=== PATIENT | female | born 1995 | race Two or more races ===

== ENCOUNTER 2022-07-20 00:33 | Emergency (ER) | payer OTHER ==
[~2022-07-20] VITALS: Ht 157.5 cm; Wt 98.6 kg
[2022-07-20 02:35] LABS: Urine Bacteria NONE SEEN /hpf (None Seen); Urine Blood Negative /uL (Negative); Urine Mucus FEW (None Seen); Urine WBC 1 /hpf (0 - 5)
[2022-07-20 04:16] VITALS: BP 115/71
== END 2022-07-20 04:33 | disposition home or self-care (01) ==
LOC: ER 00:38
DX: S56.117A Strain of flexor muscle, fascia and tendon of right little finger at forearm level, initial encounter (principal); W22.8XXA Striking against or struck by other objects, initial encounter; Y93.89 Activity, other specified; Y92.89 Other specified places as the place of occurrence of the external cause; Y99.8 Other external cause status
CPT/HCPCS: 73130; 81001

== ENCOUNTER → 2023-07-03 | Outpatient (CLI) | payer MEDICAID ==
[2023-07-03 11:07] LABS: Basophils # (auto) 0.1 10 ^3/uL (0-0.2); Basophils % (auto) 0.4 % (0.0-2.0); Eosinophils # (auto) 0.2 10 ^3/uL (0-0.8); Eosinophils % (auto) 1.8 % (0.0-7.0); Hematocrit 40.3 % (36.0-46.0); Hemoglobin 13.4 g/dL (12.2-16.2); Lymphocytes # (auto) 1.8 10 ^3/uL (0.4-5.4); Lymphocytes % (auto) 14.7 % (10.0-50.0); Mean Corpuscular Hemoglobin 27.4 pg (28.0-32.0); Mean Corpuscular Hgb Conc. 33.2 g/dL (32.0-36.0); Mean Corpuscular Volume 82.6 fL (80.0-100.0); Monocytes # (auto) 0.5 10 ^3/uL (0-1.3); Monocytes % (auto) 4.3 % (0.0-12.0); Neutrophils # (auto) 9.8 10 ^3/uL (1.6-8.6); Neutrophils % (auto) 78.8 % (37.0-80.0); Red Blood Cells 4.89 10^6/uL (4.0-5.20); White Blood Cell 12.4 10^3/uL (4.4-10.8)
[2023-07-03 11:44] LABS: Amphetamine Screen, Urine Neg (NEGATIVE); Barbiturate Scree,Urine Neg (NEGATIVE); Benzodiazephine Screen, Urine Neg (NEGATIVE); Cocaine Screen, Urine Neg (NEGATIVE); Opiate Scree,Urine Neg (NEGATIVE)
[2023-07-03 11:45] LABS: Cannabinoid Screen, Urine Neg (NEGATIVE); Phencyclidine Screen, Urine Neg (NEGATIVE)
[2023-07-04 07:07] LABS: RPR Non Reactive (Non Reactive)
[2023-07-05 03:06] LABS: Varicella Zoster IgG Antibody <135 index (Immune >165)
[2023-07-06 03:36] LABS: QuantiFERON-TB Gold Plus Negative (Negative)
== END | disposition home or self-care (01) ==
LOC: LAB 10:37
PROVIDERS: ATTEND Obstetrics & Gynecology
DX: Z36.0 Encounter for antenatal screening for chromosomal anomalies (principal); Z31.430 Encounter of female for testing for genetic disease carrier status for procreative management
CPT/HCPCS: 36415; 80307; 83036; 84702; 85025; 86592; 86787; 86803; 86850; 86870; 86900; 86901; 87086

== ENCOUNTER → 2023-11-03 | Outpatient (CLI) | payer MEDICAID ==
[2023-11-03 10:09] LABS: Basophils # (auto) 0.1 10 ^3/uL (0-0.2); Basophils % (auto) 0.3 % (0.0-2.0); Eosinophils # (auto) 0.2 10 ^3/uL (0-0.8); Eosinophils % (auto) 1.1 % (0.0-7.0); Hematocrit 37.9 % (36.0-46.0); Hemoglobin 12.6 g/dL (12.2-16.2); Mean Corpuscular Hemoglobin 27.5 pg (28.0-32.0); Mean Corpuscular Hgb Conc. 33.1 g/dL (32.0-36.0); Mean Corpuscular Volume 82.8 fL (80.0-100.0); Monocytes # (auto) 0.7 10 ^3/uL (0-1.3); Monocytes % (auto) 4.7 % (0.0-12.0); Neutrophils # (auto) 11.6 10 ^3/uL (1.6-8.6); Neutrophils % (auto) 79.9 % (37.0-80.0); Red Blood Cells 4.58 10^6/uL (4.0-5.20); Red Cell Distribution Width 12.9 % (11.8-14.3); White Blood Cell 14.6 10^3/uL (4.4-10.8)
== END | disposition home or self-care (01) ==
LOC: LAB 09:50
PROVIDERS: ATTEND Obstetrics & Gynecology
DX: Z34.80 Encounter for supervision of other normal pregnancy, unspecified trimester (principal); Z3A.00 Weeks of gestation of pregnancy not specified
CPT/HCPCS: 36415; 83036; 84443; 85025; 86787

== ENCOUNTER 2024-01-22 07:02 | Inpatient (IN) | payer MEDICAID ==
[2024-01-21 09:59] LABS: Urine Bacteria None Seen /hpf (None Seen)
[2024-01-21 10:12] LABS: Basophils # (auto) 0 10 ^3/uL (0-0.2); Eosinophils # (auto) 0.3 10 ^3/uL (0-0.8); Lymphocytes # (auto) 1.7 10 ^3/uL (0.4-5.4); Monocytes # (auto) 0.7 10 ^3/uL (0-1.3); Neutrophils # (auto) 10.6 10 ^3/uL (1.6-8.6)
[2024-01-21 10:13] LABS: Basophils % (auto) 0.1 % (0.0-2.0); Eosinophils % (auto) 2.5 % (0.0-7.0); Hematocrit 37.8 % (36.0-46.0); Hemoglobin 12.5 g/dL (12.2-16.2); Lymphocytes % (auto) 12.8 % (10.0-50.0); Mean Corpuscular Hemoglobin 26.4 pg (28.0-32.0); Mean Corpuscular Volume 80.1 fL (80.0-100.0); Monocytes % (auto) 5.1 % (0.0-12.0); Neutrophils % (auto) 79.5 % (37.0-80.0); Red Blood Cells 4.72 10^6/uL (4.0-5.20); Red Cell Distribution Width 14.5 % (11.8-14.3); White Blood Cell 13.3 10^3/uL (4.4-10.8)
[2024-01-21 10:27] LABS: Alanine Aminotransferase 16 U/L (7-40); Albumin 3.6 g/dL (3.2-4.8); Alkaline Phosphatase 149 U/L (46-116); Anion Gap 5 (5-15); Aspartate Aminotransferase 25 U/L (13-40); BUN/Creatinine Ratio 8.5 (10.0-20.0); Blood Urea Nitrogen 6 mg/dL (9-23); Calcium 8.8 mg/dL (8.5-10.1); Carbon Dioxide 24 mmol/L (20-30); Chloride 108 mmol/L (98-107); Glucose 118 mg/dL (74-106); Potassium 3.7 mmol/L (3.5-5.1); Sodium 137 mmol/L (136-145)
[2024-01-21 10:28] LABS: Bilirubin, Total 0.4 mg/dL (0.2-1.0); Total Protein 6.4 g/dL (5.7-8.2)
[2024-01-21 10:35] LABS: Amphetamine Screen, Urine Neg (NEGATIVE); Barbiturate Scree,Urine Neg (NEGATIVE); Benzodiazephine Screen, Urine Neg (NEGATIVE); Cocaine Screen, Urine Neg (NEGATIVE)
[2024-01-21 10:36] LABS: Cannabinoid Screen, Urine Neg (NEGATIVE); Opiate Scree,Urine Neg (NEGATIVE); Phencyclidine Screen, Urine Neg (NEGATIVE)
[2024-01-21 10:43] LABS: INR 0.91 (0.9-1.15); Partial Thromboplastin Time 30.8 SEC (24.5-34.5); Prothrombin Time 9.6 sec (9.3-11.8)
[2024-01-21 10:55] LABS: Urine Blood Negative /uL (Negative); Urine Clarity Clear (Clear); Urine Color Yellow (Yellow); Urine Mucus FEW (None Seen); Urine Protein, UAD TRACE (Negative); Urine Specific Gravity 1.019 (1.001-1.035); Urine Urobilinogen Normal (Negative); Urine WBC 3 /hpf (0 - 5)
[2024-01-22] VITALS (16 sets, daily range): BP systolic 90–111; BP diastolic 50–63; PULSE 60–102; RESP 16–20; TEMP 97.5–100.1; O2SAT 96–100
[~2024-01-22] VITALS: Ht 157.5 cm; Wt 110.7 kg
[2024-01-22 07:06] LABS: RPR Non Reactive (Non Reactive)
[2024-01-22 08:14] LABS: Urine Bacteria FEW /hpf (None Seen); Urine Blood Negative /uL (Negative); Urine Clarity Clear (Clear); Urine Color Light-Yellow (Yellow); Urine Protein, UAD Negative (Negative); Urine Specific Gravity 1.017 (1.001-1.035); Urine Urobilinogen Normal (Negative); Urine WBC 2 /hpf (0 - 5); Urine pH 6.5 (5.0-9.0)
[2024-01-22 08:23] LABS: Amphetamine Screen, Urine Neg (NEGATIVE); Barbiturate Scree,Urine Neg (NEGATIVE); Benzodiazephine Screen, Urine Neg (NEGATIVE); Cannabinoid Screen, Urine Neg (NEGATIVE); Cocaine Screen, Urine Neg (NEGATIVE); Opiate Scree,Urine Neg (NEGATIVE); Phencyclidine Screen, Urine Neg (NEGATIVE)
[2024-01-22] MEDS ORDERED: ePHEDrine SULFATE 50 MG/ML AMP ONE (08:45)
[2024-01-22] MEDS ORDERED: MORPHINE SULF PF 5 MG/10 ML VIAL ONE (08:45)
[2024-01-22] MEDS ORDERED: ONDANSETRON HCL 4 MG/2 ML VIAL ONE (08:45)
[2024-01-22] MEDS ORDERED: GLYCOPYRROLATE 0.2 MG/ML 1ML VIAL ONE (08:45)
[2024-01-22] MEDS ORDERED: fentaNYL CITRATE 100 MCG/2 ML VL ONE (08:45)
[2024-01-22] MEDS ORDERED: oxyTOCIN 10 UNIT/ML 10ML VIAL ONE (08:45)
[2024-01-22] MEDS ORDERED: KETOROLAC TROMETH 30 MG/ML 1ML VIAL ONE (08:45)
[2024-01-22] MEDS ORDERED: BUPIVACAINE 0.5% P/F INJ 10 ML VIAL ONE (08:51)
[2024-01-22] MEDS ORDERED: MEPERIDINE HCL (25 MG/ML) 1ML VIAL ONE (09:44)
[2024-01-22] MEDS ORDERED: diphenhdrAMINE HCL 50 MG/1 ML VL IV PRN (10:45)
[2024-01-22] MEDS ORDERED: NALOXONE HCL 0.4 MG/ML VIAL IV PRN (10:45)
[2024-01-22] MEDS ORDERED: ONDANSETRON HCL 4 MG/2 ML VIAL IV PRN ×2 (10:45→12:00)
[2024-01-22] MEDS ORDERED: DexAMETHasone SOD PHOS 10MG/1ML VIAL INJ IV PRN (10:45)
[2024-01-22] MEDS ORDERED: IBUP-1455 PO (11:12)
[2024-01-22] MEDS ORDERED: CEPH500C PO (11:12)
[2024-01-22] MEDS ORDERED: HYDR-4902 PO (11:12)
[2024-01-22] MEDS: LACTATED RINGER'S 1,000 ML IV SCH (11:29)
[2024-01-22] MEDS: ceFAZolin 2 GM/D5W50ml 50 ML IV ONE (11:29)
[2024-01-22] MEDS: LACTATED RINGER'S 1,000 ML IV ONE (11:29)
[2024-01-22] MEDS ORDERED: MORPHINE SULFATE 4 MG/ML SYR/VIAL IV PRN (12:00)
[2024-01-22] MEDS: ACETAMINOPHEN IV 1000 MG/100ML (10MG/ML) IV PRN (13:49)
[2024-01-22] MEDS: ceFAZolin 1GM/50ML 50 ML IV SCH (16:41)
[2024-01-23] MEDS: KETOROLAC TROMETH 30 MG/ML 1ML VIAL IV PRN (01:20)
[2024-01-23 02:50] VITALS: BP 95/55; PULSE 101; RESP 17; TEMP 99.2; O2SAT 100
[2024-01-23 07:00] VITALS: BP 102/59; PULSE 94; RESP 14; TEMP 98.3; O2SAT 96
[2024-01-23 09:35] LABS: Basophils # (auto) 0 10 ^3/uL (0-0.2); Basophils % (auto) 0.2 % (0.0-2.0)
[2024-01-23 09:36] LABS: Eosinophils # (auto) 0.3 10 ^3/uL (0-0.8); Eosinophils % (auto) 1.9 % (0.0-7.0); Hemoglobin 10.2 g/dL (12.2-16.2); Lymphocytes # (auto) 1.5 10 ^3/uL (0.4-5.4); Lymphocytes % (auto) 9.5 % (10.0-50.0); Mean Corpuscular Hemoglobin 26.2 pg (28.0-32.0); Mean Corpuscular Hgb Conc. 32.7 g/dL (32.0-36.0); Monocytes # (auto) 0.7 10 ^3/uL (0-1.3); Monocytes % (auto) 4.5 % (0.0-12.0); Neutrophils # (auto) 13.2 10 ^3/uL (1.6-8.6); Neutrophils % (auto) 83.9 % (37.0-80.0); Red Blood Cells 3.88 10^6/uL (4.0-5.20); Red Cell Distribution Width 14.9 % (11.8-14.3); White Blood Cell 15.7 10^3/uL (4.4-10.8)
[2024-01-23] MEDS: ePHEDrine SULFATE 50 MG/ML AMP IV PRN (10:45)
[2024-01-23 11:07] VITALS: BP 111/56; PULSE 97; RESP 17; TEMP 97.8; O2SAT 96
[2024-01-23] MEDS: SIMETHICONE 80 MG CHEWABLE TABLET PO SCH (12:00)
[2024-01-23] MEDS: IBUPROFEN 800 MG TAB PO PRN (14:25)
[2024-01-23 15:00] VITALS: BP 115/73; PULSE 105; RESP 16; TEMP 98.3; O2SAT 98
[2024-01-23] MEDS: HYDROcodone-ACET 5/325MG TAB PO PRN (17:17)
[2024-01-23 19:00] VITALS: BP 113/62; PULSE 78; TEMP 98.2; O2SAT 100
[2024-01-23 23:00] VITALS: BP 110/65; PULSE 100; RESP 16; TEMP 98.1; O2SAT 98
[2024-01-23] MEDS: DOCUSATE SOD 100 MG CAP PO SCH (23:05)
[2024-01-24 02:50] VITALS: BP 114/70; PULSE 82; RESP 16; TEMP 98.5; O2SAT 98
[2024-01-24] MEDS: HYDROcodone-ACET 5/325MG TAB PO PRN (05:59)
[2024-01-24 07:25] VITALS: TEMP 97.5
[2024-01-24] MEDS: DOCUSATE CALCIUM 240 MG CAP PO SCH (09:58)
[2024-01-24 11:00] VITALS: BP 120/65; PULSE 109; RESP 16; TEMP 97.7; O2SAT 100
[2024-01-24 12:30] VITALS: BP 120/65; PULSE 109; RESP 16; TEMP 97.7; O2SAT 100
== END 2024-01-24 12:30 | disposition home or self-care (01) | DRG 540 ==
LOC: LDRP 07:02
PROVIDERS: ADMIT Obstetrics & Gynecology; ATTEND Obstetrics & Gynecology
PROC: 10D00Z1 Extraction of Products of Conception, Low, Open Approach (ICD-10-PCS; principal; 2024-01-22 09:36)
DX: O34.211 Maternal care for low transverse scar from previous cesarean delivery (principal); O99.214 Obesity complicating childbirth; E66.01 Morbid (severe) obesity due to excess calories; O26.893 Other specified pregnancy related conditions, third trimester; Z37.0 Single live birth; Z3A.39 39 weeks gestation of pregnancy; Z67.41 Type O blood, Rh negative
CPT/HCPCS: 36415; 59025; 80053; 80307; 81001; 85025; 85610; 85730; 86592; 86850; 86900; 86901; 94760; 94762; 96360; 96361; 96366; G0378; J0131; J1885; J2405; J2590; J3490

== ENCOUNTER 2025-09-08 07:38 | Inpatient (IN) | payer MEDICAID ==
[~2025-09-08] VITALS: Ht 154.9 cm; Wt 117.5 kg
[~2025-09-08 07:38] MED LIST: CEPH500C PO; HYDR-4902 PO; IBUP-1455 PO
[2025-09-08 08:50] LABS: Hemoglobin 12.2 g/dL (12.2-16.2); Nucleated Red Blood Cells % 0.0 %
[2025-09-08 08:52] LABS: Hematocrit 36.8 % (36.0-46.0); Mean Corpuscular Hemoglobin 25.7 pg (28.0-32.0); Mean Corpuscular Volume 77.5 fL (80.0-100.0)
[2025-09-08 09:01] LABS: Urine Budding Yeast OCCASIONAL /hpf (None Seen); Urine Protein, UAD Negative (Negative)
[2025-09-08 09:08] LABS: Alanine Aminotransferase 11 U/L (7-40); Albumin 3.7 g/dL (3.2-4.8); Anion Gap 7 (5-15); BUN/Creatinine Ratio 9.1 (10.0-20.0); Calcium 8.9 mg/dL (8.7-10.4); Carbon Dioxide 25 mmol/L (20-31); Chloride 105 mmol/L (98-107); Glucose 87 mg/dL (74-106); Potassium 3.9 mmol/L (3.5-5.1); Sodium 137 mmol/L (136-145); Total Protein 6.5 g/dL (5.7-8.2)
[2025-09-08 09:09] LABS: Barbiturate Scree,Urine Neg (NEGATIVE); Cannabinoid Screen, Urine Neg (NEGATIVE); Cocaine Screen, Urine Neg (NEGATIVE); Opiate Scree,Urine Neg (NEGATIVE); Phencyclidine Screen, Urine Neg (NEGATIVE)
[2025-09-08 09:09] LABS: Alkaline Phosphatase 155 U/L (46-116); Bilirubin, Total 0.5 mg/dL (0.2-1.0); Blood Urea Nitrogen 7 mg/dL (9-23); INR 0.93 (0.9-1.15); Partial Thromboplastin Time 28.9 SEC (24.5-34.5); Prothrombin Time 9.9 sec (9.3-11.8)
[2025-09-08 09:10] LABS: Amphetamine Screen, Urine Neg (NEGATIVE); Benzodiazephine Screen, Urine Neg (NEGATIVE)
--- NOTE | 2025-09-08 10:11 | DVHHP ---
ADMIT DATE: 09/09/2025 CHIEF COMPLAINT: Desires repeat section. HISTORY OF PRESENT ILLNESS: The patient is a 4, para 2-0-1-2 female admitted for repeat section. The patient had previous section x2. She does not want any tubal. She has been pedro and requests having repeat section. PAST MEDICAL HISTORY: None. PAST SURGICAL HISTORY: . SOCIAL HISTORY: None. FAMILY HISTORY: None. OBSTETRIC AND GYNECOLOGIC HISTORY: Two sections. ALLERGIES: No known drug allergies. REVIEW OF SYSTEMS: Consistent with HPI. PHYSICAL EXAMINATION: VITAL SIGNS: Stable, afebrile. HEENT: Within normal limits. CARDIOVASCULAR: Regular rate and rhythm. LUNGS: Clear to auscultation. BREASTS: Symmetrical. No masses. ABDOMEN: Gravid. Positive heart. PELVIC: Cervix 1 cm, soft. EXTREMITIES: No clubbing, cyanosis or edema. IMPRESSION: * Intrauterine at 39 weeks in early labor. * Previous section x2. * Desires repeat section. PLAN: Repeat section. Informed consent was obtained. Risks and complications of surgery including infection, bleeding, hematoma formation, injury to bowel or bladder, surrounding organ, possibility of DVT, pulmonary embolism, and risks of anesthesia discussed with the patient. Options reviewed. All questions were answered. The patient fully understands. She wishes to proceed with planned procedure. DO REJI Morales[place] [place]: [id number] RECEIPT: [id number]
[2025-09-08 10:41] LABS: Hepatitis C Antibody Negative (Negative)
[2025-09-09] VITALS (16 sets, daily range): BP systolic 97–121; BP diastolic 50–76; PULSE 66–105; RESP 15–20; TEMP 97.9–99; O2SAT 95–100
[2025-09-09] MEDS: LACTATED RINGER'S 1,000 ML IV ONE (04:30)
[2025-09-09] MEDS: ceFAZolin 2 GM/D5W50ml 50 ML IV ONE (06:30)
[2025-09-09] MEDS: TETRACAINE 1% INJ 2 ML VIAL IJ ONE (06:44)
[2025-09-09] MEDS ORDERED: fentaNYL CITRATE 100 MCG/2 ML VL ONE ×2 (06:45→07:41)
[2025-09-09] MEDS ORDERED: MIDAZOLAM HCL 2MG/2ML 2ml VIAL (1mg/ml) ONE (06:45)
[2025-09-09] MEDS ORDERED: SODIUM CHLORIDE LOCK 10 ML ONE (06:45)
[2025-09-09] MEDS ORDERED: MORPHINE SULF PF 5 MG/10 ML VIAL ONE (06:45)
[2025-09-09] MEDS ORDERED: BUPIVACAINE/DEXTROSE MPF 0.75% 2 ML AMP IT ONE (06:45)
[2025-09-09] MEDS ORDERED: ONDANSETRON HCL 4 MG/2 ML VIAL ONE (06:46)
[2025-09-09] MEDS ORDERED: KETAMINE 50mg/ML 1ml syringe ONE (07:35)
--- NOTE | 2025-09-09 08:10 | DVHOP2 ---
Operative Report DATE OF OPERATION:09/09/25 PREOPERATIVE DIAGNOSES: [term preg in labor,previous csx2,desires rcs ,morbid obesity] POSTOPERATIVE DIAGNOSES: [same,nuchal cord] OPERATION PERFORMED: Repeat Section FINDINGS: [b] infant. Apgars of [7] and [9]. Weight [good] crying tone. [clear] amniotic fluid. Placenta and three-vessel were intact. Normal tubes, ovaries, and uterus. Moderate scar tissue. SURGEON: Yudelka Moore D.O. FIELD RESEARCH ASSOCIATE: orthopedic technician, [poli]. ANESTHESIOLOGIST: [kristine]Shu ANESTHESIA: [Duramorph spinal, regional]. COMPLICATIONS: [none]. ESTIMATED BLOOD LOSS: [800] mL. BLOOD PRODUCTS USED: [none]. PROCEDURE IN DETAIL: The patient was taken to the operating room, placed in sitting position, and spinal was placed without difficulty. She was then prepped and draped in a sterile fashion. A low Pfannenstiel incision was made scapel. At this point, it was carried down through the rectus fascia, nicked in the midline, and carried laterally. The rectus muscles were in the midline. Peritoneum was identified and entered with sharp dissection. Vesicouterine peritoneum was taken off the lower uterine segment. A lower uterine transverse incision was made with a scalpel down the chorionic membranes, ruptured with hemostat. Infant was in vertex position. One hand was placed in the lower uterine segment. Head was essentially delivered spontaneously. Nose and mouth were bulb suctioned. Shoulders and torso were delivered without difficulty. Again, pharynx, nose, and mouth were re-suctioned with vigorous crying tone. Cord was cut. The was handed off to the awaiting Respiratory. At this point, umbilical blood sample was taken. Placenta was removed. Uterus was exteriorized, cleared off all clots and debris, irrigated, and closed with a double layer of 0-Vicryl. The vesicouterine peritoneum was incorporated into this closure. We had complete hemostasis. EBL was [800] mL. The instrument, lap, and sponge count was correct x1. The uterus was placed back into the peritoneum. The peritoneal cavity was re-inspected and the lower uterine incision with good hemostasis. We closed the peritoneum with running continuous of 2-0 Vicryl. The Rectus Fascia was closed with 0-PDS, running continuous, looped-0. The skin was closed undermined, irrigated, and close with maggie. CONDITION: The patient's and the infant's condition is stable and but guarded. Visit Coding OBGYN Date of Service: Sep 09, 2025 Billing Provider: YUDELKA MOORE DO STEVEDORING SUPERVISOR Common Visit Codes: 87352-UZHZSVP INP/OBS CARE (HIGH) STEVEDORING SUPERVISOR Procedure Codes: 01822-[id number] DELIVERY ONLY YUDELKA MOORE DO Sep 09, 2025 08:10
[2025-09-09] MEDS ORDERED: LACT. RINGERS/OXYTOCIN 20UNITS 1,000 ML IV ONE (08:15)
[2025-09-09] MEDS ORDERED: ONDANSETRON HCL 4 MG/2 ML VIAL IV PRN (08:15)
[2025-09-09] MEDS ORDERED: ceFAZolin 1GM/50ML 50 ML IV SCH ×2 (08:15→14:15)
[2025-09-09] MEDS ORDERED: GUM (CHEWING) 1 GUM CHEW CHEW ONE (08:15)
--- NOTE | 2025-09-09 08:28 | POSTOP ---
Post-Operative Note Post-Operative Note Preop Diagnosis iup at term in labor,previous csx2,desires rcs,morbid obesity Postop Diagnosis: same,nuchal cord Operation performed rcs Specimen baby boy,apgars 7-9 Anesthesia: Regional Anesthesiologist: mookie Blood Loss(fluid mgmt) 800ml Surgeon Yudelka Moore Family Independence Case Manager poli Implant na Complications & Mgmt none Date 09/09/25 Time 08:26 Visit Coding OBGYN Date of Service: Sep 09, 2025 Billing Provider: YUDELKA MOORE DO FRICTION SAW OPERATOR Common Visit Codes: 84590-[id number] INP/OBS CARE (HIGH) FRICTION SAW OPERATOR Procedure Codes: [id number] DELIVERY ONLY YUDELKA MOORE DO Sep 09, 2025 08:28
[2025-09-09] MEDS ORDERED: DOCU-94 PO (08:29)
[2025-09-09] MEDS ORDERED: IBUP-1456 PO (08:29)
[2025-09-09] MEDS ORDERED: HYDR-4072 PO (08:29)
[2025-09-09] MEDS ORDERED: CEPH500T PO (08:29)
[2025-09-09] MEDS: ACETAMINOPHEN IV 1000 MG/100ML (10MG/ML) IV ONE (08:51)
[2025-09-09] MEDS: KETOROLAC TROMETH 30 MG/ML 1ML VIAL IV ONE (09:01)
[2025-09-09] MEDS: ACETAMINOPHEN IV 100 ML IV ONE (09:03)
[2025-09-09] MEDS ORDERED: HYDROmorphone HCL 2 MG/ML VL/or syr IV PRN (12:15)
[2025-09-09] MEDS: ceFAZolin 1GM/50ML 50 ML IV SCH (15:47)
[2025-09-09] MEDS: ACETAMINOPHEN IV 1000 MG/100ML (10MG/ML) IV PRN (18:01)
[2025-09-09 21:04] LABS: Hematocrit 31.5 % (36.0-46.0); Hemoglobin 10.4 g/dL (12.2-16.2); Mean Corpuscular Hemoglobin 25.7 pg (28.0-32.0); Mean Corpuscular Volume 78.0 fL (80.0-100.0); Nucleated Red Blood Cells % 0.0 %
[2025-09-09] MEDS: LACTATED RINGER'S 1,000 ML IV SCH (23:34)
[2025-09-10] VITALS (10 sets, daily range): BP systolic 105–131; BP diastolic 54–76; PULSE 72–104; RESP 16–18; TEMP 98.2–98.9; O2SAT 95–100
[2025-09-10] MEDS ORDERED: HYDROcodone-ACET 5/325MG TAB PO PRN ×2 (06:00)
--- NOTE | 2025-09-10 07:12 | DVHPN2 ---
Chief Complaints Patient reports: No new complaints Nursing reports: No new complaints Objective Vitals Vital Signs Date Time Temp Pulse Resp B/P (MAP) Pulse Ox O2 Delivery O2 Flow Rate FiO2 09/10/25 05:00 95 18 96 09/10/25 03:00 98.7 114/72 (86) 98.7 09/09/25 19:00 Room Air 09/09/25 08:21 0 100 Medications Current Medications Medications (Trade) Dose Ordered Sig/Fredrick Route PRN Reason Start Time Stop Time Status Last Admin Acetaminophen (Ofirmev) 1,000 mg Q8HP PRN IV PAIN SCALE 1-3 OR TEMP>100.4 09/09/25 17:00 09/10/25 14:01 09/10/25 02:52 Acetaminophen/ Hydrocodone Bitart ([place] 5/325MG Tab) 1 tab Q4HPRN PRN PO FOR PAIN 1-6 09/10/25 06:00 Acetaminophen/ Hydrocodone Bitart ([place] 5/325MG Tab) 2 tab Q4HPRN PRN PO FOR PAIN 7-10 09/10/25 06:00 Cefazolin Sodium 50 ml @ 100 mls/hr Q8H IV 09/09/25 15:00 09/10/25 07:29 09/09/25 23:33 Dimethicone (Mylicon Tab) 80 mg QID PO 09/10/25 06:00 Docusate Sodium (Colace Capsule) 100 mg Q12HR PO 09/10/25 10:00 Hydromorphone HCl (Dilaudid Injection) 1 mg Q4HPRN PRN IV MODERATE PAIN (4-6 PAIN SCALE) 09/09/25 12:15 Ibuprofen (Motrin Tablet) 800 mg Q8HP PRN PO BREAKTHROUGH PAIN 09/10/25 06:00 Ondansetron HCl (Zofran) 4 mg Q4HP PRN IV NAUSEA / VOMITING 09/09/25 08:15 General: Normal Abdominal: Normal (Wound clean dry intact ) Studies Laboratory Tests 09/09/25 20:54 09/08/25 08:27 Test 09/08/25 08:27 Range/Units Serum Glucose 87 74-106 mg/dL Ass/Plan Assessment POD #1 stable improved Plan advance care SARIAH EWING DO Sep 10, 2025 07:12
[2025-09-10] MEDS: IBUPROFEN 800 MG TAB PO PRN (07:36)
[2025-09-10 08:27] LABS: Hemoglobin 10.7 g/dL (12.2-16.2)
[2025-09-10 08:30] LABS: Hematocrit 32.1 % (36.0-46.0); Mean Corpuscular Hemoglobin 25.8 pg (28.0-32.0); Mean Corpuscular Volume 77.1 fL (80.0-100.0); Nucleated Red Blood Cells % 0.1 %
[2025-09-10] MEDS: SIMETHICONE 80 MG CHEWABLE TABLET PO SCH (22:46)
[2025-09-10] MEDS: DOCUSATE SOD 100 MG CAP PO SCH (22:46)
[2025-09-11 03:00] VITALS: BP 123/68; PULSE 85; RESP 20; TEMP 98.5; O2SAT 99
[2025-09-11 06:30] VITALS: BP 107/64; PULSE 99; RESP 17; TEMP 98.5; O2SAT 97
[2025-09-11 11:00] VITALS: BP 102/58; PULSE 98; RESP 17; TEMP 98.2; O2SAT 98
--- NOTE | 2025-09-11 11:14 | DVHDS2 ---
Discharge Summary Date of Admission Sep 09, 2025 at 04:00 Date of Discharge: Sep 11, 2025 Labs/Diagnostic Data: Laboratory Results Test 09/10/25 07:54 09/08/25 08:27 09/08/25 08:15 White Blood Count 15.3 10^3/uL (4.4-10.8) Red Blood Count 4.16 10^6/uL (4.0-5.20) Hemoglobin 10.7 g/dL (12.2-16.2) Hematocrit 32.1 % (36.0-46.0) Mean Corpuscular Volume 77.1 fL (80.0-100.0) Mean Corpuscular Hemoglobin 25.8 pg (28.0-32.0) Mean Corpuscular Hemoglobin Concent 33.4 g/dL (32.0-36.0) Red Cell Distribution Width 15.2 % (11.8-14.3) Platelet Count 344 10^3/uL (140-450) Mean Platelet Volume 7.9 fL (6.9-10.8) Neutrophils (%) (Auto) 85.4 % (37.0-80.0) Lymphocytes (%) (Auto) 8.1 % (10.0-50.0) Monocytes (%) (Auto) 4.3 % (0.0-12.0) Eosinophils (%) (Auto) 1.9 % (0.0-7.0) Basophils (%) (Auto) 0.3 % (0.0-2.0) Neutrophils # (Auto) 13.1 10 ^3/uL (1.6-8.6) Lymphocytes # (Auto) 1.2 10 ^3/uL (0.4-5.4) Monocytes # (Auto) 0.7 10 ^3/uL (0-1.3) Eosinophils # (Auto) 0.3 10 ^3/uL (0-0.8) Basophils # (Auto) 0 10 ^3/uL (0-0.2) Nucleated Red Blood Cells 0.1 % Prothrombin Time 9.9 sec (9.3-11.8) Prothrombin Time INR 0.93 (0.9-1.15) Activated Partial Thromboplast Time 28.9 SEC (24.5-34.5) Sodium Level 137 mmol/L (136-145) Potassium Level 3.9 mmol/L (3.5-5.1) Chloride Level 105 mmol/L (98-107) Carbon Dioxide Level 25 mmol/L (20-31) Anion Gap 7 (5-15) Blood Urea Nitrogen 7 mg/dL (9-23) Creatinine 0.77 mg/dL (0.550-1.02) Glomerular Filtration Rate Calc 106 mL/min (>90) BUN/Creatinine Ratio 9.1 (10.0-20.0) Serum Glucose 87 mg/dL (74-106) Calcium Level 8.9 mg/dL (8.7-10.4) Total Bilirubin 0.5 mg/dL (0.2-1.0) Aspartate Amino Transferase (AST) 18 U/L (13-40) Alanine Aminotransferase (ALT) 11 U/L (7-40) Alkaline Phosphatase 155 U/L (46-116) Total Protein 6.5 g/dL (5.7-8.2) Albumin 3.7 g/dL (3.2-4.8) Treponema pallidum Antibody Non-reactive (Negative) Hepatitis B Surface Antibody Negative (Negative) Hepatitis C Antibody Negative (Negative) Urine Color Light-yellow (Yellow) Urine Clarity Hazy (Clear) Urine pH 6.5 (5.0-9.0) Urine Specific [place] 1.016 (1.001-1.035) Urine Protein Negative (Negative) Urine Ketones Negative (Negative) Urine Blood Negative /uL (Negative) Urine Nitrite Negative (Negative) Urine Bilirubin Negative (Negative) Urine Urobilinogen Normal mg/dL (Negative) Urine Leukocyte Esterase Negative /uL (Negative) Urine RBC 1 /hpf (0 - 4) Urine Microscopic WBC 3 /HPF (0-5) Urine Squamous Epithelial Cells Mod /hpf (<5) Urine Bacteria Few /hpf (None Seen) Urine Yeast (Budding) Occasional /hpf (None Urine Glucose Normal mg/dL (Normal) Urine Opiates Screen Neg (NEGATIVE) Urine Fentanyl Screen Neg (NEGATIVE) Urine Barbiturates Screen Neg (NEGATIVE) Urine Phencyclidine Screen Neg (NEGATIVE) Urine Amphetamines Screen Neg (NEGATIVE) Urine Benzodiazepines Screen Neg (NEGATIVE) Urine Cocaine Screen Neg (NEGATIVE) Urine Cannabinoids Screen Neg (NEGATIVE) Other Laboratory Tests 09/10/25 07:54 09/08/25 08:27 Brief Hx & Hospital Course: As scheduled -section previous -section x2 Consults/Reason for consult NONE Operations or Procedures A repeat low transverse Condition at Discharge: Good Final Diagnosis/Problems List Intrauterine status post section stable improved Discharge Disposition: Home SNF Discharge Will this Physician continue t: No Discharge Instruct/Medications Diet: Regular Activity: No Restrictions, As Tolerated Activity comment: Pelvic rest 6 weeks bleeding pain and fever precautions Follow Up/Referral: Primary Ob surgeon Dr. Eun Luo for wound check as scheduled Medications: Antibiotic prophylaxis/pain meds Scheduled Cephalexin Monohydrate (Cephalexin), 1 CAP PO QID Cephalexin Monohydrate (Cephalexin), 500 MG PO QID Docusate Sodium (Colace), 1 CAP PO BID Scheduled PRN Hydrocodone-Acetaminophen (Hydrocodone Bitartrate/AC 5-325 mg), 1 TAB PO Q6HPRN PRN Hydrocodone-Acetaminophen (Hydrocodone/Acetaminophen 10-325 mg), 1 TAB PO Q6HPRN PRN Ibuprofen (Ibuprofen), 800 MG PO TID PRN Ibuprofen Micronized (Ibuprofen), 800 MG PO Q8HPRN PRN Discharge Statement: "Patient was advised to return to the ER or call 911 if any headaches, dizziness, shortness of breath, chest pain, abdominal pain, bleeding, fevers, or worsening of medical condition. Patient was counseled about treatment plan, medications, possible side effects, patientverbalized understanding. All questions were answered to the best of my ability. This discharge took greater then 30 minutes in planning, reviewing documentation, counseling the patient, and discussing with other team members." ASSESSMENT ASSESSMENT Assessment Visit Coding OBGYN Date of Service: Sep 10, 2025 Billing Provider: SARIAH EWING DO AIR SUPPORT CONTROL OFFICER Common Visit Codes: [id number] INP/OBS CARE(HIGH), 03378-XJH/OBS SAME DATE (LOW), 19079-RJX/OBS SAME DATE (MOD) AIR SUPPORT CONTROL OFFICER Procedure Codes: [id number] OB CARE, DEL SARIAH EWING DO Sep 11, 2025 11:14
== END 2025-09-11 12:20 | disposition home or self-care (01) | DRG 540 ==
LOC: LDRP 09-09 04:00
PROVIDERS: ADMIT Obstetrics & Gynecology; ATTEND Obstetrics & Gynecology
PROC: 10D00Z1 Extraction of Products of Conception, Low, Open Approach (ICD-10-PCS; principal; 2025-09-09 07:15)
DX: O69.81X0 Labor and delivery complicated by cord around neck, without compression, not applicable or unspecified (principal); R71.0 Precipitous drop in hematocrit; O99.214 Obesity complicating childbirth; O34.211 Maternal care for low transverse scar from previous cesarean delivery; Z37.0 Single live birth; E66.01 Morbid (severe) obesity due to excess calories; Z3A.39 39 weeks gestation of pregnancy
CPT/HCPCS: 36415; 59025; 80053; 80307; 81001; 85025; 85610; 85730; 86706; 86780; 86803; 86850; 86900; 86901; 94760; 94762; 96360; 96361; 96366; G0378; J0131; J1885; J2250; J2405; J2590